=== PATIENT | female | born 1985 | race Caucasian/White ===

== ENCOUNTER 2016-12-18 19:23 | Emergency (ER) | payer OTHER ==
[~2016-12-18] VITALS: Ht 162.6 cm; Wt 77.3 kg
[2016-12-18 19:37] VITALS: BP 112/63; PULSE 72; RESP 15; O2SAT 100
[2016-12-18] MEDS ORDERED: MetoCLOpramide 5 mg/mL 2 mL Inj IM ONE (20:15)
--- NOTE | 2016-12-18 20:15 | ED.REPORT ---
HPI-Headache Date of Service Dec 18, 2016 ED Provider: Samuel Alexandre MD A 31 year old female with a history of migraine headaches presents to the ED complaining of a migraine. The migraine began at 11:00 today and was severe by 15:00. The pain is concentrated behind her eyes and in the base of her skull. The pt usually gets migraines approximately once or twice per month, which she treats with ibuprofen. She has been especially stressed at work recently, which she believes may have contributed to this migraine. The pt admits to nausea and visual changes but denies fever, weakness, or new onset numbness or paresthesia. Nursing Notes Stated Complaint: HEADACHE Chief Complaint: Headache Nursing Notes Reviewed: Yes Allergies: Coded Allergies: Penicillins (Verified Allergy, Unknown, unknown, 12/18/16) hydromorphone (Verified Adverse Reaction, Severe, hypotension, 12/18/16) General Time Seen by MD: 19:48 Chief Complaint Migraine headache Hx Obtained From: Patient Arrived By: Walk-in Sudden in Onset?: No Onset Occurred: 9 - 12 hours ago Symptom Duration: Since onset Recent Healthcare: No recent doctor visit, No recent hospitalization Similar Sx Previous: No Past Medical History Past Medical History migraines Past Surgical History none reported Smoking History Unknown if Ever Smoker Social History Other Social History: Good social support, Ambulatory Status Independent Review of Systems Review of Systems Note: denies new onset paresthesia Constitutional: Denies: Fever GI: Reports: Nausea, Denies: Abdominal pain Musculoskeletal: Denies: Back pain Neurologic: Reports: Headache, Vision change, Denies: Numbness, Weakness Complete sys rev & neg: except as marked. Physical Exam Initial Vital Signs Vital Signs (First) Date Time Temp Pulse Resp B/P Pulse Ox O2 Delivery O2 Flow Rate FiO2 12/18/16 19:37 36.5 72 15 112/63 100 12/18/16 22:16 Room Air Initial VS: Reviewed General/Constitutional: Awake, Alert Head / Eyes: Atraumatic, Normocephalic, PERRL, EOMI Neck: Atraumatic, Supple, Full range of motion Neurologic: Oriented X3, Speech NL, No motor deficits, No sensory deficits, CN II - XII intact 5/5 strength in extremities ENT: Atraumatic, Airway patent, Mucous membranes moist Respiratory / Chest: Atraumatic, Breath sounds NL, Breath sounds = bilat, No respiratory distress Cardiovascular: Heart rate NL, Regular rhythm, Heart sounds NL Abdomen: Atraumatic, Soft, Non-tender Skin: Atraumatic, Color NL, No rash, Warm, Dry Psychiatric: Affect NL, Mood NL Back: Atraumatic, Full range of motion Upper Extremity / MS: Atraumatic, Full range of motion Lower Extremity / Pelvis / MS: Atraumatic, Full range of motion Re-Eval/Medical Decision Med Decision/Clinical Course 31-year-old female history of chronic migraines presenting complaining of her typical migraine. No neurological deficits. No signs of meningitis. Patient was given Toradol and Reglan and her symptoms resolved. She discharged home with return precautions. Re-Evaluation/Progress : Time of Eval: 21:53 )( Patient Status: Condition improved Re-Evaluation/Progress Note: Pt rechecked, whose condition has improved. The plan for discharge is discussed. The pt understands and agrees with the plan. All questions are addressed at this time. Counseled Regarding: Diagnosis, Need for follow-up, When/why to return to ED Discharge & Departure Impression: Primary Impression: Migraine Migraine type: unspecified Status migrainosus presence: without status migrainosus Intractability: not intractable Qualified Code: G43.909 - Migraine, unspecified, not intractable, without status migrainosus Disposition: Home Discharge Condition All VS Reviewed: Yes Condition: Stable Patient Instructions: Migraine Headache (ED) Additional Instructions: Thank you for entrusting us with your care today. Rest and take ibuprofen as directed for continuing pain. Follow up with your primary care physician for further evaluation. Return to the emergency department if you develop any new or worsening symptoms. Referrals: Eliu Singh DO (PCP) Shane Attestation Portions of this note were transcribed by Kaden Fuller. I, Dr. Alexandre personally performed the history, physical exam and medical decision-making; I reviewed and confirmed the accuracy of the information in the transcribed note. Signed by: Shane Bower, 12/18/2016 and 21:58. copies to: Eliu Singh Ben M MD Dec 18, 2016 20:15 KADEN FULLER Dec 18, 2016 20:59
[2016-12-18 22:16] VITALS: BP 90/57; PULSE 84; RESP 16; O2SAT 98
== END 2016-12-18 22:11 | disposition home or self-care (01) ==
LOC: SED 19:23
DX: G43.909 Migraine, unspecified, not intractable, without status migrainosus (principal); Z88.0 Allergy status to penicillin; Z88.5 Allergy status to narcotic agent
CPT/HCPCS: 96361; 96372; 96374; 99284; J2765

== ENCOUNTER 2017-07-22 22:33 | Emergency (ER) | payer OTHER ==
[~2017-07-22] VITALS: Ht 162.6 cm; Wt 77.3 kg
[2017-07-22 22:37] VITALS: BP 117/64; PULSE 87; RESP 18; O2SAT 100
--- NOTE | 2017-07-22 23:54 | ED.REPORT ---
HPI-Bite: Human/Animal Date of Service Jul 22, 2017 ED Provider: Eric Cohen DO Pt is a 31 year old female with a history of migraines and DVT who presents to the ED after a dog bite to her left hand. She c/o associated left hand pain. The pt reports that she was breaking up a dog fight, resulting in 4 picture peterson on her hand by an [place] Bulldog Meliza. She states that all of the dogs are up to date on their vaccinations. Nursing Notes Stated Complaint: PUNCTURE WOUND LEFT HAND Chief Complaint: Laceration Nursing Notes Reviewed: Yes Allergies: Coded Allergies: Penicillins (Verified Allergy, Unknown, unknown, 07/22/17) hydromorphone (Verified Adverse Reaction, Severe, hypotension, 07/22/17) General Time Seen by MD: 23:54 Chief Complaint Dog bite Hx Obtained From: Patient Arrived By: Walk-in Onset Occurred: Just prior to arrival Symptom Duration: Since onset Location: : Hand right Quality: Painful Radiation: Does not radiate Severity: Current: Moderate Severity: Maximum: Moderate Context: Immunizations Immunizations: All up to date Recent Healthcare: No recent doctor visit, No recent hospitalization Similar Sx Previous: No Past Medical History Past Medical History migraines Past Surgical History none reported Smoking History Unknown if Ever Smoker Social History Other Social History: Good social support, Ambulatory Status Independent Review of Systems + left hand pain + left hand laceration + left hand punctures Constitutional: Denies: Fever Complete sys rev & neg: except as marked. Physical Exam Vital Signs Vital Signs (First) Date Time Temp Pulse Resp B/P Pulse Ox O2 Delivery O2 Flow Rate FiO2 07/22/17 22:37 36.2 87 18 117/64 100 Room Air Initial VS: Reviewed Head / Eyes: Atraumatic, Normocephalic Neck: Supple, Full range of motion Respiratory: Breath sounds normal, Clear to auscultation, No respiratory distress Cardiovascular: Regular rate & rhythm, Intact distal pulses Abdomen / GI: Soft, Non-tender Extremities: Vascular intact, Neuro intact Neurologic: Alert, Oriented, Nonfocal Psychiatric: Mood/affect normal, Behavior normal General/Constitutional: Awake, Alert Skin: Atraumatic, Warm, Dry, Intact Multiple pucture wounds and small lacerations. Nothing that will require sutures. Interpretation & Diagnostics X-RAY, LEFT HAND: Negative Read by: Wet Read - ED physician Re-Eval/Medical Decision Med Decision/Clinical Course No signs of tendon rupture or tendon infection. No signs of traumatic arthrotomy. Wounds were washed, dressed. She will be on antibiotic prophylaxis. 48 hour wound check recommended. Old records Re-Evaluation/Progress #1: Time of Eval: 00:14 Re-Evaluation/Progress Note: Infromed pt of plan for x-ray and recommendation against sutures. Pt understands and agrees with plan. All questions addressed. Re-Evaluation/Progress #2: Time of Eval: 00:58 Re-Evaluation/Progress Note: Pt rechecked. Informed pt of negative x-ray and plan for discharged. Pt understands and agrees with plan for discharge. F/U instructions and RTER warnings given. All questions addressed. Counseled Regarding: Diagnosis, Need for follow-up, When/why to return to ED Discharge & Departure Impression: Primary Impression: Dog bite Encounter type: initial encounter Qualified Code: W54.0XXA - Bitten by dog, initial encounter Disposition: Home Discharge Condition All VS Reviewed: Yes Condition: Stable Patient Instructions: Animal Bite (ED) Additional Instructions: I did not appreciate a fracture on the x-ray. Take doxycycline twice daily and Flagyl 3 times daily both for 5 days to prevent infection. You need to avoid direct sunlight and alcohol while taking the doxycycline and Flagyl. You may take 1-2 [place] every 6 hours as needed for severe/breakthrough pain. Ibuprofen as directed for moderate pain. Do not drive or drink alcohol or consume acetaminophen tonight or while taking the [place]. Return if any problems or any signs or symptoms of infection. Have the wounds checked in about a week. Referrals: José Miguel Jimenez Attestation Portions of this note were transcribed by Emelyn Anderson. I, Dr. Cohen personally performed the history, physical exam and medical decision-making; I reviewed and confirmed the accuracy of the information in the transcribed note. Signed by : Shane Zurita, 07/22/17. copies to: José Miguel Jimenez Todd P DO Jul 22, 2017 23:54 Emelyn Ruiz Jul 23, 2017 00:19
[2017-07-23] MEDS ORDERED: HYDROcodone-APAP 5-325 mg Tablet PO ONE (00:15)
[2017-07-23 02:17] VITALS: BP 97/64; PULSE 70; RESP 16; O2SAT 98
--- NOTE | 2017-07-23 08:24 | DRSVH ---
PROCEDURE: X-RAY LEFT HAND, TWO VIEWS ([id number]) INDICATIONS: dog bite TECHNIQUE: 2 views of the hand(s) acquired. COMPARISON: None. FINDINGS: Bones: No fractures or dislocations. Carpal bones are normally aligned. No suspicious bony lesions . Soft tissues: No suspicious soft tissue calcifications. There is gas within the soft tissues of the thenar eminence area but no underlying osteomyelitis. IMPRESSION: No fracture or foreign body material seen. A small amount of gas is present within the t henar eminence area at the web between the first and second distal metacarpal bones. Dictated by: David Qiu M.D. on 07/23/2017 at 8:21 Approved by: David Qiu M.D. on 07/23/2017 at 8:22
== END 2017-07-23 02:18 | disposition home or self-care (01) ==
LOC: SED 22:33
DX: S61.452A Open bite of left hand, initial encounter (principal); W54.0XXA Bitten by dog, initial encounter; Y93.89 Activity, other specified; Y92.9 Unspecified place or not applicable; Y99.8 Other external cause status; Z88.0 Allergy status to penicillin; Z88.5 Allergy status to narcotic agent